=== PATIENT | male | born 1975 | race Caucasian/White ===

== ENCOUNTER → 2022-12-10 | Outpatient (CLI) | payer BC, SELFPAY ==
[2022-12-10 22:00] LABS: Absolute Neutrophil Count 3.5 X10^3/uL (2.0-7.7); Basophil# 0.03 X10^3/uL; Basophil% 0.5 % (0-1); Eosinophils% 3.3 % (0-5); Hemoglobin 14.6 g/dL (13.0-16.5); Lymphocyte % 28.2 % (19-41); Mean Corp Hgb Conc 32.4 g/dL (32-36); Mean Corpuscular Volume 95.5 fL (80-94); Mean Platelet Vol. 10.3 fl (6.2-12.0); Monocyte# 0.55 X10^3/uL; Monocyte% 9.1 % (0-10); NRBC Flagged by Analyzer 0 % (0-5); Neutrophil # 3.53 X10^3/uL (2.7-7.7); Neutrophil % 58.7 % (47-70); Platelet Count 244 K/mm3 (150-450); RBC Distribution Width CV 12.4 % (11.6-14.6); RBC Distribution Width SD 44.1 fl (35.1-43.9); Red Blood Count 4.71 M/mm3 (4.6-6.2)
== END | disposition home or self-care (01) ==
PROVIDERS: Visit Provider Nurse Practitioner
DX: D72.819 Decreased white blood cell count, unspecified (principal)
CPT/HCPCS: 85025

== ENCOUNTER → 2024-12-13 | Outpatient (CLI) | payer OTHER, SELFPAY ==
--- OUTSIDE RECORDS SUMMARY | 2024-12-13 22:59 | XMS RPT_ITS | CCD ---
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 (1 source) Penicillins Allergy to substance 06-26-[address] [facility] (1 source) Amoxicillin Drug Allergy 06-26-2021 [facility] (1 source) Penicillins Drug allergy (disorder) 06-26-2021 [facility] Medications Current Medications Medication Drug Class(es) Dates Sig (Normalized) Sig (Original) clindamycin 10 mg/ml topical lotion (1 source) Lincosamide Antibacterial Start: 06-26-2021 Clindamycin Phosphate Active 1 APPLIC TOPICAL TWICE A DAY 60 June 26, 2021 1:00am apply to red areas and pustules 2 x a day Completed/Discontinued Medications Medication Drug Class(es) Dates Sig (Normalized) Sig (Original) predniSONE 10 mg oral tablet (1 source) Start: 06-26-2021 End: 06-30-2021 Prednisone Discontinued 20 MG PO TWICE A DAY 30 4 June 26, 2021 1:00am June 30, 2021 1:01am 2 po bid 4D,1 po bid for 4 D, 1 po qd for 4D 1/2 po qd for2 D Problems Active Problems Problem Classification Problem Date Documented Da te Episodic/Chronic Diseases of white blood cells (2 sources) Leukopenia; Translations: [Decreased white blood cell count, unspecified] Onset: 12-16-2022 12-10-2022 Chronic Essential hypertension (2 sources) Essential (primary) hypertension; Translations: [Essential (primary) hypertension] Onset: 07-26-2017 Chronic Other inflammatory condition of skin (1 source) Rosacea; Translations: [Rosacea, unspecified] 06-26-2021 Chronic Other skin disorders (1 source) Eruption; Translations: [Rash and other nonspecific skin eruption] 06-26-2021 Episodic Substance-related disorders (2 sources) Nicotine dependence, chewing tobacco, uncomplicated; Translations: [Nicotine dependence, chewing tobacco, uncomplicated] Onset: 07-26-2017 Chronic Past or Other Problems Problem Classification Problem Date Documented Da te Episodic/Chronic Allergic reactions (2 sources) Allergy status to penicillin; Translations: [Allergy status to penicillin] Onset: 07-26-2017 Episodic Hemorrhoids (2 sources) First degree hemorrhoids; Translations: [First degree hemorrhoids] Onset: 07-26-2017 Episodic Unclassified (2 sources) Encounter for screening for malignant neoplasm of colon; Translations: [Encounter for screening for malignant neoplasm of colon] Onset: 07-26-2017 Episodic Unclassified (2 sources) Family history of colonic polyps; Translations: [Family history of colonic polyps] Onset: 07-26-2017 Episodic Results Test Name Value Interpretation Reference Range Facil ity CBC W/Diff, Automatedon 06-0 Absolute Lymph 1.70 X10 3/uL Normal 0.83-4.51 [facility] Comment on above: Performed By: #### L 100.0100 #### [facility] [address] [place], [address] Absolute Neut 3.5 X10 3/uL Normal 2.0-7.7 [facility] Comment on above: Performed By: #### L 100.0100 #### [facility] [address] [place], [address] IG% 0.200 Normal 0.0-0.9 [facility] Comment on above: Result Comment: IG% - Immature Granulocytes (promyelocytes, myelocytes and metamyelocytes) > 1% indicates that a LEFT SHIFT is Present. Performed By: #### L 100.0100 #### [facility] [address] [place], [address] Nucleated RBC (Bld) [#/Vol] 0 10*3/uL Normal 0-5 [facility] Comment on above: Performed By: #### L 100.0100 #### [facility] [address] [place], [address] RDW SD 44.1 fl High 35.1-43.9 [facility] Comment on above: Performed By: #### L 100.0100 #### [facility] [address] [place], [address] Absolute lymphocyte countOrd ered By: Sarah Beth Massey on 12-10-2022 Lymphocytes Auto (Unsp spec) [#/Vol] 1.70 10*3/uL 0.83-4.51 [facility] Automated blood hematocrit ( percentage)Ordered By: Sarah Beth Massey on 12-10-2022 Hematocrit (Bld) [Volume fraction] 45.0 % Normal 40-54 [facility] Comment on above: Performed By: #### L 100.0100 #### [facility] [address] [place], [address] Basophil percentageOrdered B y: Sarah Beth Massey on 12-10-2022 Basophils/100 WBC (Bld) 0.5 % Normal 0-1 [facility] Comment on above: Performed By: #### L 100.0100 #### [facility] [address] [place], [address] Eosinophils/100 WBC (Bld) 3.3 % Normal 0-5 [facility] Comment on above: Performed By: #### L 100.0100 #### [facility] [address] [place], [address] Neutrophils (Bld) [#/Vol] 3.5 10*3/uL 2.0-7.7 [facility] Neutrophils/100 WBC (Bld) 58.7 % Normal 47-70 [facility] Comment on above: Performed By: #### L 100.0100 #### [facility] [address] [place], [address] WBC (Bld) [#/Vol] 6.0 10*3/uL Normal 4.4-11.0 [facility] Comment on above: Performed By: #### L 100.0100 #### [facility] [address] [place], [address] Blood erythrocytes count (nu mber/volume)Ordered By: Sarah Beth Massey on 12-10-2022 RBC (Bld) [#/Vol] 4.71 10*6/uL Normal 4.6-6.2 [facility] Comment on above: Performed By: #### L 100.0100 #### [facility] [address] [place], [address] Blood hemoglobin measurement (mass/volume)Ordered By: Sarah Beth Massey on 12-10-2022 Hemoglobin (Bld) [Mass/Vol] 14.6 g/dL Normal 13.0-16.5 [facility] Comment on above: Performed By: #### L 100.0100 #### [facility] [address] [place], [address] Blood lymphocytes/100 leukoc ytesOrdered By: Sarah Beth Massey on 12-10-2022 Lymphocytes/100 WBC (Bld) 28.2 % Normal 19-41 [facility] Comment on above: Performed By: #### L 100.0100 #### [facility] [address] [place], [address] Blood monocytes/100 leukocyt esOrdered By: Sarah Beth Massey on 12-10-2022 Monocytes/100 WBC (Bld) 9.1 % Normal 0-10 [facility] Comment on above: Performed By: #### L 100.0100 #### [facility] [address] [place], [address] Blood platelet mean volumeOr dered By: Sarah Beth Massey on 12-10-2022 Platelet mean volume (Bld) [Entitic vol] 10.3 fL Normal 6.2-12.0 [facility] Comment on above: Performed By: #### L 100.0100 #### [facility] [address] [place], [place], [id number] CBC W/Diff, AutomatedOrdered By: Sarah Beth Massey on 12-10-2022 Erythrocyte distribution width (RBC) [Ratio] 12.4 % Normal 11.6-14.6 [facility] Comment on above: Performed By: #### L 100.0100 #### [facility] [address] [place], [address] MCH (RBC) [Entitic mass] 31.0 pg Normal 27.0-32.0 [facility] Comment on above: Performed By: #### L 100.0100 #### [facility] [address] [place], [address] Determination of erythrocyte mean corpuscular volume (MCV)Ordered By: Sarah Beth Massey on 12-10-2022 MCV (RBC) [Entitic vol] 95.5 fL High 80-94 [facility] Comment on above: Performed By: #### L 100.0100 #### [facility] [address] [place], [place], [id number] Laboratory - Hematology and Cell countsOrdered By: Sarah Beth Massey on 12-10-2022 Erythrocyte distribution width (RBC) [Entitic vol] 44.1 fL 35.1-43.9 [facility] Immature granulocytes/100 WBC (Bld) 0.200 % 0.0-0.9 [facility] Comment on above: IG% - Immature Granu locytes (promyelocytes, myelocytes and metamyelocytes) > 1% indicates that a LEFT SHIFT is Present. Nucleated RBC/100 WBC (Bld) [Ratio] 0 % 0-5 [facility] MCHC [Mass/volume] by Automa david countOrdered By: Sarah Beth Massey on 12-10-2022 MCHC (RBC) [Mass/Vol] 32.4 g/dL Normal 32-36 [facility] Comment on above: Performed By: #### L 100.0100 #### [facility] [address] [place], [address] Platelets bldOrdered By: Galen Massey on 12-10-2022 Platelets (Bld) [#/Vol] 244 10*3/uL Normal 150-450 [facility] Comment on above: Performed By: #### L 100.0100 #### [facility] [address] [place], [address] Vital Signs Date Time Vital Sign Value Performing Clinician Faci lity 12-10-2022 15:20-0400 Body height 176.53 cm [facility] Encounters Encounter Date Encounter Type Care Provider Facility Start: 12-10-2022 End: 12-10-2022 Patient encounter procedure [facility], Specimen Start: 12-10-2022 End: 12-10-2022 ambulatory Sarah Beth Massey [employer] [facility] Work Phone: Start: 07-26-2017 Ambulatory Sarmad Daniel [facility] Payers Date Payer Category Payer Self-pay [id number] 2022 Unknown [id number] Unknown Unknown [facility] [id number] Unknown [id number] Social History Date Type Detail Facility Tobacco smoking stat [facility] Unknown if ever smoked [facility] Work Phone: Start: 1975 Sex Assigned At Male [facility] Evaluation note Note Date & Type Note Facility Evaluation note Diagnosis Onset Date Decreased white blood cell c ount, unspecified acute Rosacea acute [facility] Work Phone: Summary Purpose Family History No Family History Records FoundNo Family History Records Found Advance Directives No Advanced Directives Records FoundNo Advanced Directives Records Found Chief Complaint and Reason for Visit Chief Complaint lab cbc Reason for Visit Decreased white bloo d cell count, unspecified Rosacea Additional Source Comments (unrecognized sect ion and content) No Status Records FoundNo Status Records Found INFORMATION SOURCE (unrecogn ized section and content) DATE CREATED AUTHOR 01/04/2018 [facility] DATE CREATED AUTHOR AUTHOR'S ORGANIZ ATION 12/21/2022 [facility] Care Teams (unrecognized sec tion and content) Team Status: Inactive Member Role Status Dates Sarah Beth Massey [employer]ER, [employer]OLLER-C Attending Provider Active Goals (unrecognized section and content) Goals may be documented in a n alternate section FOR RECORDS PERTAINING TO PATIENTS WHO ARE OR HAVE BEEN ENROLLED IN A CHEMICAL DEPENDENCY/SUBSTANCEABUSE PROGRAM, SOME INFORMATION MAY BE OMITTED. This clinical summary was aggregated from multiple sources. Caution should be exercised in using it in the provision of clinical care. This summary normalizes information from multiple sources, and as a consequence, information in this document may materially change the coding, format and clinical context of patient data. In addition, data may be omitted in some cases. CLINICAL DECISIONS SHOULD BE BASED ON THE PRIMARY CLINICAL RECORDS. [employer] provides no warranty or guarantee of the accuracy or completeness of information in this document.
[2024-12-13 23:21] LABS: Absolute Lymphocyte Count 1.45 X10^3/uL (0.83-4.51); Absolute Neutrophil Count 3.4 X10^3/uL (2.0-7.7); Basophil# 0.03 X10^3/uL; Basophil% 0.5 % (0-1); Eosinophil# 0.16 X10^3/uL; Eosinophils% 2.9 % (0-5); Hematocrit 43.7 % (40-54); Hemoglobin 14.5 g/dL (13.0-16.5); Lymphocyte # 1.45 X10^3/ul (0.83-4.51); Lymphocyte % 26.3 % (19-41); Mean Corp Hgb Conc 33.2 g/dL (32-36); Mean Corpuscular Hgb 31.3 pg (27.0-32.0); Mean Corpuscular Volume 94.2 fL (80-94); Monocyte# 0.45 X10^3/uL; Monocyte% 8.2 % (0-10); NRBC Flagged by Analyzer 0 % (0-5); Neutrophil # 3.41 X10^3/uL (2.7-7.7); Neutrophil % 61.9 % (47-70); Platelet Count 259 K/mm3 (150-450); RBC Distribution Width CV 12.5 % (11.6-14.6); Red Blood Count 4.64 M/mm3 (4.6-6.2); White Blood Count 5.5 K/mm3 (4.4-11.0)
[2024-12-13 23:36] LABS: ALB/GLOB Ratio 1.5 RATIO (0.9-2.4); AST(SGOT) 34 U/L (<=37); Alanine Aminotransfer ALT/SGPT 25 U/L (<=46); Albumin, Serum 4.8 g/dL (3.5-5.0); Alkaline Phosphatase 53 U/L (40-129); Anion Gap 13 (5-15); BUN 8 mg/dL (4-19); BUN/Creat Ratio 8.5 RATIO (10-20); Carbon Dioxide 24.8 mmol/L (21.0-32.0); Chloride 96 mmol/L (98-108); Cholesterol 205 mg/dL (<=200); Creatinine, Serum 0.96 mg/dL (0.70-1.20); EST Glomerular Filtration Rate 97 (>60); Globulin 3.3 g/dL (2.2-4.2); Glucose 147 mg/dL (70-99); High Density Lipoprotein 112 mg/dL; Low Density Lipoprotein Calc. 83 mg/dL; Potassium 4.8 mmol/L (3.3-5.1); Protein, Total 8.1 g/dL (5.9-8.4); Sodium Level 134 mmol/L (133-145); Total Bilirubin 0.83 mg/dL (0.00-1.30); Triglycerides 52 mg/dL; Very Low Density Lipoprotein 10 mg/dL (5-40); cholesterol:hdl ratio screen 1.83
== END | disposition home or self-care (01) ==
PROVIDERS: Referring Provider Nurse Practitioner; Visit Provider Nurse Practitioner
DX: I10 Essential (primary) hypertension (principal); J30.2 Other seasonal allergic rhinitis; L72.3 Sebaceous cyst
CPT/HCPCS: 80053; 80061; 85025